=== PATIENT | male | born 1945 | race Caucasian/White ===

== ENCOUNTER 2016-07-12 18:20 | Inpatient (IN) | payer OTHER, MEDICARE ==
[~2016-07-12] VITALS: Ht 170.2 cm; Wt 119.0 kg
[2016-07-12 19:04] LABS: CALCIUM 9.1 mg/dL (8.5-10.1); CARBON DIOXIDE 22.3 mmol/L (21-32); CREATININE SERUM 2.3 mg/dL (0.7-1.3); POTASSIUM SERUM 4.6 mmol/L (3.5-5.1)
[2016-07-12 19:07] LABS: ALBUMIN 3.8 g/dL (3.4-5.0); BILIRUBIN TOTAL 0.88 mg/dL (0.20-1.00); TOTAL PROTEIN, SERUM 7.6 g/dL (6.4-8.2)
[2016-07-12 19:10] LABS: BASOPHIL % 0.3 % (0-2)
[2016-07-12 19:26] LABS: microscopic required? YES; urine erythrocyte 2+ (NEGATIVE)
[2016-07-12 19:34] LABS: RED CELL DISTRIBUTION WIDTH 18.3 % (11.5-14.5)
[2016-07-12 19:37] LABS: PLATELET COUNT 97 x10^3mcL (130-400)
[2016-07-12 20:10] VITALS: BP 82/54
[2016-07-12 22:05] VITALS: BP 160/78
[2016-07-12] MEDS ORDERED: NOR5 PO (22:13)
[2016-07-12] MEDS ORDERED: CLOPIDOGREL75 M1 PO ×2 (22:13)
[2016-07-12] MEDS ORDERED: SIMVASTATIN10 M1 PO (22:13)
[2016-07-12] MEDS ORDERED: RAMIPRIL2.5 MG PO (22:13)
[2016-07-12] MEDS ORDERED: CARVEDILOL12.5 M1 PO (22:13)
[2016-07-12] MEDS ORDERED: PRA0.5 PO (22:14)
[2016-07-12] MEDS ORDERED: BAYER ASPIRIN C81 MG PO (22:14)
[2016-07-12] MEDS ORDERED: CALCITRIOL0.25 MCG PO (22:14)
[2016-07-12] MEDS ORDERED: FUROSEMIDE40 MG PO (22:15)
[2016-07-12 22:20] LABS: MAGNESIUM 2.9 mg/dL (1.8-2.4); PHOSPHOROUS 7.7 mg/dL (2.5-4.9)
[2016-07-12 22:27] LABS: CHOLESTEROL/HDL RATIO 2.8
[2016-07-12 22:30] LABS: T3 TOTAL 0.73 ng/mL
[2016-07-12 22:32] LABS: FREE T4 1.01 ng/dL (0.76-1.46); T4(THYROXINE) 6.5 ug/dL (4.7-13.3)
[2016-07-12 22:38] LABS: AMPHETAMINE QUAL UR NONE DETECTED (NEG <=1000)
[2016-07-12 22:53] VITALS: BP 160/78
[2016-07-13] VITALS (18 sets, daily range): BP systolic 91–151; BP diastolic 53–88
[2016-07-13 05:05] LABS: BASOPHIL % 0.1 % (0-2)
[2016-07-13 05:08] LABS: PLATELET COUNT 104 x10^3mcL (130-400); RED CELL DISTRIBUTION WIDTH 16.9 % (11.5-14.5)
[2016-07-13 05:17] LABS: CALCIUM 7.4 mg/dL (8.5-10.1); CARBON DIOXIDE 22.9 mmol/L (21-32); CREATININE SERUM 2.2 mg/dL (0.7-1.3); MAGNESIUM 1.7 mg/dL (1.8-2.4); PHOSPHOROUS 4.4 mg/dL (2.5-4.9); POTASSIUM SERUM 4.9 mmol/L (3.5-5.1)
[2016-07-13 13:21] LABS: BASOPHIL % 0.9 % (0-2); PLATELET COUNT 106 x10^3mcL (130-400); RED CELL DISTRIBUTION WIDTH 17.1 % (11.5-14.5)
[2016-07-13 14:01] LABS: CALCIUM 7.5 mg/dL (8.5-10.1); CARBON DIOXIDE 21.7 mmol/L (21-32); CREATININE SERUM 2.3 mg/dL (0.7-1.3); MAGNESIUM 2.2 mg/dL (1.8-2.4); POTASSIUM SERUM 4.9 mmol/L (3.5-5.1)
[2016-07-14] VITALS (18 sets, daily range): BP systolic 83–145; BP diastolic 53–78
[2016-07-14 05:45] LABS: BASOPHIL % 0 % (0-2); PLATELET COUNT 70 x10^3mcL (130-400); RED CELL DISTRIBUTION WIDTH 17.1 % (11.5-14.5)
[2016-07-14 06:00] LABS: CALCIUM 6.5 mg/dL (8.5-10.1); CARBON DIOXIDE 19.9 mmol/L (21-32); CREATININE SERUM 2.1 mg/dL (0.7-1.3); MAGNESIUM 1.7 mg/dL (1.8-2.4); PHOSPHOROUS 3.3 mg/dL (2.5-4.9); POTASSIUM SERUM 3.5 mmol/L (3.5-5.1)
[2016-07-15] VITALS (16 sets, daily range): BP systolic 114–180; BP diastolic 64–110; Ht 170.2 cm; Wt 119.0 kg
[2016-07-15 05:55] LABS: BASOPHIL % 0.1 % (0-2)
[2016-07-15 05:58] LABS: CALCIUM 8.3 mg/dL (8.5-10.1); CARBON DIOXIDE 23.7 mmol/L (21-32); CREATININE SERUM 2.2 mg/dL (0.7-1.3); MAGNESIUM 1.8 mg/dL (1.8-2.4); PHOSPHOROUS 3.5 mg/dL (2.5-4.9); POTASSIUM SERUM 4.6 mmol/L (3.5-5.1)
[2016-07-15 06:22] LABS: PLATELET COUNT 99 x10^3mcL (130-400); RED CELL DISTRIBUTION WIDTH 17.9 % (11.5-14.5)
[2016-07-16] VITALS (19 sets, daily range): BP systolic 115–161; BP diastolic 65–96
[2016-07-16 05:36] LABS: CALCIUM 8.3 mg/dL (8.5-10.1); CARBON DIOXIDE 25.7 mmol/L (21-32); CREATININE SERUM 1.8 mg/dL (0.7-1.3); MAGNESIUM 1.7 mg/dL (1.8-2.4); PHOSPHOROUS 2.7 mg/dL (2.5-4.9); POTASSIUM SERUM 4.1 mmol/L (3.5-5.1)
[2016-07-16 05:38] LABS: BASOPHIL % 0.4 % (0-2)
[2016-07-16 05:43] LABS: PLATELET COUNT 98 x10^3mcL (130-400)
[2016-07-17] VITALS (14 sets, daily range): BP systolic 104–167; BP diastolic 66–93
[2016-07-17 05:36] LABS: BASOPHIL % 0.3 % (0-2)
[2016-07-17 05:40] LABS: PLATELET COUNT 91 x10^3mcL (130-400); RED CELL DISTRIBUTION WIDTH 16.9 % (11.5-14.5)
[2016-07-17 05:44] LABS: CALCIUM 8.3 mg/dL (8.5-10.1); CARBON DIOXIDE 26.6 mmol/L (21-32); CREATININE SERUM 1.7 mg/dL (0.7-1.3); MAGNESIUM 1.8 mg/dL (1.8-2.4); PHOSPHOROUS 3.4 mg/dL (2.5-4.9); POTASSIUM SERUM 4.1 mmol/L (3.5-5.1)
[2016-07-18] VITALS (10 sets, daily range): BP systolic 98–163; BP diastolic 62–95
[2016-07-18 05:52] LABS: BASOPHIL % 1.4 % (0-2)
[2016-07-18 05:53] LABS: PLATELET COUNT 104 x10^3mcL (130-400); RED CELL DISTRIBUTION WIDTH 15.4 % (11.5-14.5)
[2016-07-18 05:59] LABS: CARBON DIOXIDE 26.8 mmol/L (21-32); CREATININE SERUM 1.7 mg/dL (0.7-1.3); MAGNESIUM 1.9 mg/dL (1.8-2.4); PHOSPHOROUS 3.6 mg/dL (2.5-4.9); POTASSIUM SERUM 4.2 mmol/L (3.5-5.1)
== END 2016-07-18 12:53 | disposition expired | DRG 207 ==
LOC: ED 18:20 → IC 20:56
PROVIDERS: Emergency Medicine; Family Medicine; ADMIT Family Medicine
PROC: 5A1955Z Respiratory Ventilation, Greater than 96 Consecutive Hours (ICD-10-PCS; principal; 2016-07-12)
PROC: 05HN33Z Insertion of Infusion Device into Left Internal Jugular Vein, Percutaneous Approach (ICD-10-PCS; 2016-07-13)
PROC: B544ZZA Ultrasonography of Left Jugular Veins, Guidance (ICD-10-PCS; 2016-07-13)
DX: J96.01 Acute respiratory failure with hypoxia (principal); I50.43 Acute on chronic combined systolic (congestive) and diastolic (congestive) heart failure; N17.0 Acute kidney failure with tubular necrosis; K92.2 Gastrointestinal hemorrhage, unspecified; G93.1 Anoxic brain damage, not elsewhere classified; D68.69 Other thrombophilia; Z68.41 Body mass index [BMI] 40.0-44.9, adult; I11.0 Hypertensive heart disease with heart failure; K72.90 Hepatic failure, unspecified without coma; E11.21 Type 2 diabetes mellitus with diabetic nephropathy; R13.11 Dysphagia, oral phase; D69.6 Thrombocytopenia, unspecified; E03.9 Hypothyroidism, unspecified; E78.5 Hyperlipidemia, unspecified; I87.2 Venous insufficiency (chronic) (peripheral); D75.1 Secondary polycythemia; E66.9 Obesity, unspecified; Z51.5 Encounter for palliative care; Z79.82 Long term (current) use of aspirin; Z87.891 Personal history of nicotine dependence; E87.8 Other disorders of electrolyte and fluid balance, not elsewhere classified
CPT/HCPCS: 36556; 36600; 80307; 82962; 83880; 84439; 87046; 87046-59; A4628; C9113; G0480; J1170; J1642; J1815; J1940; J1953; J1956; J2060; J2270; J2704; J3370; J3475; J3490; J7030; J7040; J7042; Q0092